=== PATIENT | male | born 1965 | race Hispanic/Latino ===

== ENCOUNTER 2020-06-23 13:58 | Outpatient (CLI) | payer OTHER ==
--- NOTE | 2020-06-23 16:08 | XRay Report ---
RIGHT HAND 3 VIEWS 1423 INDICATION: Right hand pain COMPARISON: None available. FINDINGS: Fingers are mildly flexed making evaluation difficult. No obvious fractures or dislocations are seen. Mild index finger distal interphalangeal joint arthritic changes are noted. Artifact is se en on the oblique and lateral views. LEFT KNEE 3 VIEWS 1422 INDICATION: Left knee pain COMPARISON: None available. FINDINGS: Surgical changes are seen in the proximal tibia. Surgical changes are also seen medially in the soft tissues. No fractures or dislocations are seen. Minimal patellofemoral degenerative changes are noted. No obvious joint effusion is seen. LEFT ANKLE 3 VIEWS 1424 INDICATION: LEFT ANKLE PAIN COMPARISON: None available. FINDINGS: Surgical changes are seen in the distal fibula and at the medial malleolus. No acute fractu res or dislocations are seen. Slight ankle and mild tarsal degenerative changes are noted. Signer Name: Moshe Champagne MD Signed: 06/23/2020 4:03 PM Workstation Name: [id number]
== END 2020-06-23 13:59 | disposition home or self-care (01) ==
LOC: XRAY 13:58
PROVIDERS: ATTEND Internal Medicine
DX: M19.041 Primary osteoarthritis, right hand (principal); M17.12 Unilateral primary osteoarthritis, left knee; M19.072 Primary osteoarthritis, left ankle and foot